=== PATIENT | male | born 1945 ===

== ENCOUNTER 2017-08-05 15:08 | Outpatient (CLI) | payer MEDICARE | END 2017-08-05 15:09 | disposition home or self-care (01) | LOC: BICULT 15:08 | PROVIDERS: ATTEND Urology | DX: N39.0 Urinary tract infection, site not specified (principal); R19.09 Other intra-abdominal and pelvic swelling, mass and lump | CPT/HCPCS: 76770 ==

== ENCOUNTER 2018-07-26 16:07 | Emergency (ER) | payer MEDICARE, OTHER ==
--- NOTE | 2018-07-26 17:05 | CT ---
Exam: Head CT without contrast HISTORY: Head injury. Status post trip and fall. COMPARISON: 05/08/2007 FINDINGS: Hemorrhage: No intraparenchymal hemorrhage or extra-axial hematoma. Brain parenchyma: Cortical frost-white matter differentiation is preserved. No mass effect or midline shift. Basilar cisterns are patent Ventricular system: Ventricles and sulci are patent and symmetric. Calvarium: Intact. Minimal left frontal scalp hematoma. Sinuses and mastoid air cells: Mucosal thickening with hyperdense material in the left mastoid sinus likely due to chronic sinus disease. IMPRESSION: No intracranial post traumatic sequelae.
--- NOTE | 2018-07-26 17:12 | RAD ---
Left hand 3 views: 07/26/2018 COMPARISON: None HISTORY: Fall, trauma, pain, swelling, bruising FINDINGS: The bones are demineralized. There is prominent degenerative change involving the interphal angeal joints of the second through fifth fingers, especially the distal interphalangeal joints. Central erosive changes suspected. 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 No displac ed fracture or evidence of dislocation. There is dorsal soft tissue swelling seen on the lateral examination overlying the region of the metacarpal heads. IMPRESSION: Degenerative change and dorsal soft tissue swelling. No displaced fracture or evidence of dislocation.
== END 2018-07-26 17:45 | disposition home or self-care (01) ==
LOC: SCSER 16:07
DX: S80.02XA Contusion of left knee, initial encounter (principal); S60.222A Contusion of left hand, initial encounter; S00.81XA Abrasion of other part of head, initial encounter; W19.XXXA Unspecified fall, initial encounter
CPT/HCPCS: 70450